=== PATIENT | male | born 1980 | race Caucasian/White ===

== ENCOUNTER 2019-11-27 00:57 | Emergency (ER) | payer BC ==
--- NOTE | 2019-11-27 03:01 | EDM.PDOC ---
ED HPI GENERAL MEDICAL PROBLEM - General Chief Complaint: Respiratory Problem Stated Complaint: SORE THROAT CANT SLEEP UP SINCE SATURDAY Time Seen by Provider: 11/27/19 02:37 Source of Information: Reports: Patient History Limitations: Reports: No Limitations - History of Present Illness INITIAL COMMENTS - FREE TEXT/NARRATIVE: Mr. Marrero is a very pleasant 39-year-old man with a past medical history significant for GERD, insomnia, and obesity, who states that he developed a sore throat and body aches this past 11/23/2019. He also states that he cannot sleep, secondary to chest congestion. He states that his throat is so sore, that it hurts for him to swallow. No recent fever. He has had nausea, but no emesis. No recent constipation, diarrhea, urinary symptoms, abdominal pain, recent weight gain or weight loss, recent bloody bowel movements or black bowel movements, recent joint aches, headaches, or rashes. The patient states that he has gargled salt water, taken Mucinex, [place] Cold and Flu, Tylenol, ibuprofen, and another generic cold and flu medicine, all without relief of symptoms. The patient's last solid food was pizza, around 16:30. The patient's PCP is Francine Gill NP. He did not receive an influenza vaccine this season, but agreed to receive one here [facility]. Throat Pain Score (Numeric/FACES): 7 - Related Data Allergies Allergy/AdvReac Type Severity Reaction Status Date / Time No Known Allergies Allergy Verified 11/27/19 01:20 Home Meds: Home Meds Acetaminophen/HYDROcodone [Byron 325-5 MG] 1 - 2 tab PO Q6H PRN #16 tablet 11/27 [Rx] Past Medical History Gastrointestinal History: Reports: GERD Psychiatric History: Reports: Other (See Below) (Insomnia) Endocrine/Metabolic History: Reports: Obesity/BMI 30+ Social & Family History - Tobacco Use Smoking Status *Q: Former Smoker Years of Tobacco use: 10 Packs/Tins Daily: 4 Month/Year Tobacco Last Used: Quit 2009 - Caffeine Use Caffeine Use: Reports: Energy Drinks - Alcohol Use Alcohol Use History: No - Recreational Drug Use Recreational Drug Use: Yes Drug Use in Last 12 Months: Yes Recreational Drug Type: Reports: Marijuana/Hashish (smokes on occasion, last late Oct 2019) - Living Situation & Occupation Living situation: Reports: Single, with Significant Other (Girlfriend), with Family (baby daughter) 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 Musculoskeletal: Reports: Back Pain ED EXAM, ENT - Physical Exam Exam: See Below Exam Limited By: No Limitations General Appearance: Alert, WD/WN, No Apparent Distress Eye Exam: Bilateral Eye: EOMI, Normal Inspection Ears: Normal External Exam, Normal Canal, Hearing Grossly Normal, TM Erythema ( Right side only, with mild bulging, but no purulence. Left TM normal.) Nose: Normal Inspection, Normal Mucousa, No Blood Mouth/Throat: Normal Gums, Normal Lips, Normal Teeth, Tonsillar Swelling (right only, with mild leftward deviation of the uvula) Head: Atraumatic, Normocephalic Neck: Normal Inspection, Supple, Full Range of Motion, Tender Lateral (right). No: Lymphadenopathy (L), Lymphadenopathy (R) Respiratory/Chest: No Respiratory Distress, Lungs Clear, Normal Breath Sounds, No Accessory Muscle Use Cardiovascular: Normal Peripheral Pulses, Regular Rate, Rhythm, No Edema, No Gallop, No JVD, No Murmur, No Rub GI/Abdominal: Normal Bowel Sounds, Soft, Non-Tender, No Organomegaly, No Distention, No Abnormal Bruit, No Mass (Male) Exam: Deferred Rectal (Males) Exam: Deferred Back: Normal Inspection, Full Range of Motion Extremities: Normal Inspection, Normal Range of Motion, No Pedal Edema, Normal Capillary Refill Neurological: Alert, Oriented, Normal Cognition, No Motor/Sensory Deficits Psychiatric: Normal Affect Skin: Warm, Dry, Intact, Normal Color, No Rash Course - Vital Signs Last Recorded V/S: Last Vital Signs Temp 35.9 C 11/27/19 01:17 Pulse 86 11/27/19 01:17 Resp 24 H 11/27/19 01:17 BP 154/100 H 11/27/19 01:17 Pulse Ox 97 11/27/19 01:17 - Orders/Labs/Meds Labs: Laboratory Tests 11/27/19 11/27/19 Range/Units 03:20 03:20 WBC 12.48 H (4.23-9.07) K/mm3 RBC 4.77 (4.63-6.08) M/mm3 Hgb 14.4 (13.7-17.5) gm/dl Hct 42.0 (40.1-51.0) % MCV 88.1 (79.0-92.2) fl MCH 30.2 (25.7-32.2) pg MCHC 34.3 (32.2-35.5) g/dl RDW Std Deviation 43.0 (35.1-43.9) fL Plt Count 305 (163-337) K/mm3 MPV 9.9 (9.4-12.3) fl Neutrophils % (Manual) 69 H (40-60) % Band Neutrophils % 0 (0-10) % Lymphocytes % (Manual) 23 (20-40) % Atypical Lymphs % 0 % Monocytes % (Manual) 4 (2-10) % Eosinophils % (Manual) 3 (0.8-7.0) % Basophils % (Manual) 1 (0.2-1.2) Toxic Granulation 1+ slight Platelet Estimate Adequate RBC Morph Comment Normal Sodium 136 (136-145) mEq/L Potassium 4.4 (3.5-5.1) mEq/L Chloride 98 (98-107) mEq/L Carbon Dioxide 26 (21-32) mEq/L Anion Gap 16.4 H (5-15) BUN 9 (7-18) mg/dL Creatinine 0.8 (0.7-1.3) mg/dL Est Cr Clr Drug Dosing 141.49 mL/min Estimated GFR (MDRD) > 60 (>60) mL/min BUN/Creatinine Ratio 11.3 L (14-18) Glucose 105 (74-106) mg/dL Calcium 9.9 (8.5-10.1) mg/dL Magnesium 2.5 H (1.8-2.4) mg/dl Total Bilirubin 0.8 (0.2-1.0) mg/dL AST 46 H (15-37) U/L ALT 92 H (16-63) U/L Alkaline Phosphatase 78 (46-116) U/L Total Protein 8.7 H (6.4-8.2) g/dl Albumin 4.1 (3.4-5.0) g/dl Globulin 4.6 gm/dL Albumin/Globulin Ratio 0.9 L (1-2) Meds: Medications Discontinued Medications Generic Name Dose Route Start Last Admin Trade Name Yossi PRN Reason Stop Dose Admin Ampicillin Sodium/Sulbactam Sodium Confirm 11/27/19 03:02 11/27/19 03:27 Unasyn Administered 11/27/19 03:03 Not Given Dose 3 gm .ROUTE .STK-MED ONE Sodium Chloride 1,000 mls @ 150 mls/hr 11/27/19 03:00 11/27/19 03:24 Normal Saline IV 150 mls/hr ASDIRECTED KATHIE Administration Ampicillin Sodium/Sulbactam 100 mls @ 200 mls/hr 11/27/19 02:56 11/27/19 03: 27 Sodium 3 gm/ Sodium Chloride IV 11/27/19 03:25 200 mls/hr ONETIME STA Administration Influenza Virus Vaccine 1 each 11/27/19 02:54 Pharmacy To Dose - Influenza Vaccine IM 11/27/19 02:55 ONETIME ONE Influenza Virus Vaccine 60 mcg 11/27/19 03:15 11/27/19 03:57 Fluzone Quad Syringe IM 11/27/19 03:16 60 mcg .ONCE ONE Administration Ondansetron HCl 4 mg 11/27/19 02:54 11/27/19 03:24 Zofran IVPUSH 11/27/19 02:55 4 mg ONETIME ONE Administration Penicillin G Benzathine 1.2 millunits 11/27/19 05:17 11/27/19 05:46 Bicillin L-A IM 11/27/19 05:18 1.2 millunits ONETIME STA Administration - Re-Assessments/Exams Free Text/Narrative Re-Assessment/Exam: 11/27/19 02:57 On examination, the patient has significant swelling to his right tonsilar area , with mild leftward deviation of his uvula. This may be peritonsillar cellulitis, but is more likely a peritonsillar abscess. I have ordered a workup that includes blood work, a rapid strep test, and a CT scan of the soft tissue of his neck with IV contrast. In the meantime, the patient will be treated with IV fluid, IV Zofran, and I will start him on empiric Unasyn. Unfortunately, the patient drove himself here, and he tells me that his whole family is in [place], therefore he does not have a ride home. I therefore cannot order an opioid. 11/27/19 04:24 The patient's CBC is remarkable for a WBC count elevated at 12.48, but with 0% bandemia. The remainder of his CBC is unremarkable. His CMP is remarkable for an anion gap elevated at 16.4, but with a bicarbonate normal at 26. His AST/ALT are mildly elevated at 46/92. The remainder of his CMP is unremarkable. His magnesium level is slightly elevated at 2.5. His rapid strep test is positive. As above, the patient was already treated with Zosyn. 11/27/19 04:55 CT of the soft tissue of the neck is read by vRcarline as "Findings consistent with adenoiditis and bilateral palatine tonsillitis. No peritonsillar abscess." The body of the report reads "There is thickening of the bilateral palatine tonsils , right greater than left, which touch in the midline. This causes narrowing of the oropharyngeal airway. No peritonsillar abscess." 11/27/19 05:17 I was unable to discern from the CT report if the patient has peritonsillar cellulitis, or just a bad case of strep throat. Case discussed with Benita at [facility] at 05:09 CT images pushed to [facility] at 05:10. Case discussed with Dr. Power, ENT, at 05:12. He stated that peritonsillar cellulitis is, in effect, a bad case of strep throat. He agreed with treating the patient with an injection of penicillin G benzathine. The patient should return to the ED if he develops trismus or difficulty breathing. 11/27/19 05:26 The above plan was discussed with the patient. I will discharge him home with recommendation that he take [id number] ibuprofen [id number], and I will prescribe Byron for breakthrough pain. I'm also recommending that he talk to his PCP about getting a sleep study to evaluate for obstructive sleep apnea. The patient received an influenza vaccine. Departure - Departure Time of Disposition: 05:26 Disposition: Home, Self-Care 01 Condition: Good Clinical Impression: Peritonsillar cellulitis - Discharge Information *PRESCRIPTION DRUG MONITORING PROGRAM REVIEWED*: Not Applicable *COPY OF PRESCRIPTION DRUG MONITORING REPORT IN PATIENT VILMA: Not Applicable Prescriptions: Acetaminophen/HYDROcodone [Byron 325-5 MG] 1 - 2 tab PO Q6H PRN #16 tablet PRN Reason: Pain (Severe 7-10) Instructions: Peritonsillar Cellulitis Referrals: Mira Glil NP [Primary Care Provider] - Forms: ED Department Discharge Additional Instructions: You were seen in the emergency room for several days of a severe sore throat, along with body aches and nausea. Workup in the ER included blood work, a rapid strep test, and a CT scan of the soft tissue of your neck with IV contrast. The rapid strep test returned positive, and a CT scan confirmed that you have peritonsillar cellulitis = bad strep throat. You were given an injection of long-acting penicillin. No further antibiotics are necessary. We recommend that you take [id number] ibuprofen, 3-4 tablets (600-800 mg) every 8 hours, with food, around the clock. You may also take 1-2 tablets of the opioid pain reliever Byron up to every 6 hours, as needed for pain not relieved by ibuprofen. If you take Byron, do not drive or operate heavy machinery for 12 hours afterwards. Byron may cause constipation, so consider taking a stool softener. It is important that you return to the ER if you have difficulty opening your jaw (trismus), or if you have difficulty breathing. As discussed, we recommend that you follow-up with your PCP, Mira Gill NP, to discuss obtaining a sleep study to evaluate for obstructive sleep apnea. If any other problems, please do not hesitate to return to the ER. Sepsis Event Note - Evaluation Sepsis Screening Result: No Definite Risk - Focused Exam Date Exam was Performed: 12/02/19 Time Exam was Performed: 14:09
[2019-11-27] MEDS: Sodium Chloride 0.9% 1,000 ML IV SCH (03:24)
[2019-11-27] MEDS: Ondansetron 4 MG/2 ML SDV IVPUSH ONE (03:24)
[2019-11-27] MEDS: Ampicillin/Sulbactam Na 3 GM Vial ONE (03:27)
[2019-11-27] MEDS: Ampicillin/Sulbactam Na 3 GM in Sodium Chloride 0.9% 100 ML IV STA (03:27)
[2019-11-27] MEDS: FLU Vacc QS2019-20(6MOS+)/PF 60 MCG/0.5 ML SYRINGE IM ONE (03:57)
[2019-11-27] MEDS: Penicillin G Benzathine 1,200,000 Units/2 ML Syringe IM STA (05:46)
--- NOTE | 2019-11-27 08:33 | CT ---
CT neck Technique: Multiple axial sections through the neck were obtained. Intravenous contrast was utilized. Reconstructed coronal and sagittal images were obtained. Findings: Soft tissue fullness seen within the right peritonsillar and within the right side of the adenoid region. Findings compatible with infection. There is no well-defined low density collection of fluid to indicate abscess at this time. No additional soft tissue findings are seen within the neck. Parotid salivary glands and submandibular salivary glands are within normal limits. Thyroid gland appears normal. Prevertebral soft tissues are normal. Epiglottis is normal. Slightly increased scattered lymph nodes within the neck which are most likely reactive from the pharyngeal process. Bone window settings were reviewed. No acute osseous finding is appreciated. Impression: 1. Findings compatible with mostly right-sided tonsillitis and mostly right-sided adenoiditis. No findings of abscess are seen at this time. 2. Other findings believed to be incidental as noted above. Diagnostic code #3 This report was dictated in [place] Standard Time I agree with preliminary report from [facility], finalized on 11/27/19, 5:46 AM Central Time
== END 2019-11-27 06:00 | disposition home or self-care (01) ==
LOC: JD.ED 00:57
DX: J36 Peritonsillar abscess (principal); E66.9 Obesity, unspecified; Z68.34 Body mass index [BMI] 34.0-34.9, adult; Z23 Encounter for immunization; Z87.891 Personal history of nicotine dependence
CPT/HCPCS: 36415; 70491; 70491-26; 80053; 83735; 85007; 85027; 87430; 90686; 96361; 96365; 96372; 96375; 99283-25; 99284; G0008; J0295; J0561; J2405; J7030; J7050